=== PATIENT | male | born 1980 | race Caucasian/White ===

== ENCOUNTER → 2018-11-16 | Outpatient (CLI) | payer OTHER | END | disposition home or self-care (01) | LOC: LAB EV 18:00 → LAB SHORT 18:00 | DX: J02.9 Acute pharyngitis, unspecified (principal) | CPT/HCPCS: 87070 ==

== ENCOUNTER 2020-12-15 10:18 | Emergency (ER) | payer OTHER ==
[~2020-12-15] VITALS: Ht 180.3 cm; Wt 136.1 kg
[2020-12-15] MEDS ORDERED: HYDR1TAB94 (10:41)
[2020-12-15] MEDS ORDERED: ALLO100 (10:41)
[2020-12-15] MEDS ORDERED: OXYC5 (10:41)
[2020-12-15] MEDS ORDERED: GABA100 (10:41)
== END 2020-12-15 11:07 | disposition home or self-care (01) ==
LOC: ER 10:18
DX: L76.82 Other postprocedural complications of skin and subcutaneous tissue (principal); Z79.899 Other long term (current) drug therapy
CPT/HCPCS: 99282

== ENCOUNTER 2021-02-20 00:30 | Day surgery (SDC) | payer OTHER ==
[~2021-02-20 00:30] MED LIST: ALLO100; GABA100; HYDR1TAB94; OXYC5 PO
--- NOTE | 2021-02-20 16:03 | NUR ---
CALLED DR RADHA ALVARADO OFFICE TO OBTAIN ORDER FOR PICC LINE CARE. OFFICE STATES THEY WILL FAX THE ORDER TO US TOMORROW.
[2021-02-20] MEDS ORDERED: ONDA4ODT MM (16:06)
[2021-02-20] MEDS ORDERED: MORP15ER PO (16:06)
[2021-02-20] MEDS ORDERED: CIPR500 PO (16:06)
[2021-02-20] MEDS ORDERED: BENZ100A PO (16:07)
[2021-02-20] MEDS ORDERED: FAMO20 PO (16:07)
[2021-02-20] MEDS ORDERED: PROMETHAZINE12.5 M1 PO (16:07)
[2021-02-26] MEDS ORDERED: ALLO300 PO (14:39)
[2021-02-26] MEDS ORDERED: NEURONTIN300 MG PO (14:39)
== END 2021-02-20 15:20 | disposition home or self-care (01) ==
LOC: ATC 00:30
DX: C60.2 Malignant neoplasm of body of penis (principal); C77.4 Secondary and unspecified malignant neoplasm of inguinal and lower limb lymph nodes; Z90.79 Acquired absence of other genital organ(s)
CPT/HCPCS: 96372; J1447

== ENCOUNTER 2021-02-21 04:47 | Day surgery (SDC) | payer OTHER ==
[~2021-02-21 04:47] MED LIST changes: +BENZ100A PO; +CIPR500 PO; +FAMO20 PO; +MORP15ER PO; +ONDA4ODT MM; +PROMETHAZINE12.5 M1 PO
[2021-02-26] MEDS ORDERED: ALLO300 PO (14:39)
[2021-02-26] MEDS ORDERED: NEURONTIN300 MG PO (14:39)
== END 2021-02-21 14:45 | disposition home or self-care (01) ==
LOC: ATC 04:47
DX: C60.2 Malignant neoplasm of body of penis (principal); C77.4 Secondary and unspecified malignant neoplasm of inguinal and lower limb lymph nodes; Z90.79 Acquired absence of other genital organ(s)
CPT/HCPCS: 96372; J1447

== ENCOUNTER 2021-02-22 14:22 | Day surgery (SDC) | payer OTHER ==
[2021-02-26] MEDS ORDERED: NEURONTIN300 MG PO (14:39)
[2021-02-26] MEDS ORDERED: ALLO300 PO (14:39)
== END 2021-02-22 14:35 | disposition home or self-care (01) ==
LOC: ATC 14:22
DX: C60.9 Malignant neoplasm of penis, unspecified (principal); K21.9 Gastro-esophageal reflux disease without esophagitis
CPT/HCPCS: 96372; J1447

== ENCOUNTER 2021-02-23 14:19 | Day surgery (SDC) | payer OTHER ==
[2021-02-26] MEDS ORDERED: NEURONTIN300 MG PO (14:39)
[2021-02-26] MEDS ORDERED: ALLO300 PO (14:39)
== END 2021-02-23 14:32 | disposition home or self-care (01) ==
LOC: ATC 14:19
DX: C60.8 Malignant neoplasm of overlapping sites of penis (principal)
CPT/HCPCS: 96372; J1447

== ENCOUNTER 2021-02-24 02:40 | Day surgery (SDC) | payer OTHER ==
[2021-02-24 14:41] LABS: Hematocrit 36.2 % (37.0-53.0); Hemoglobin 12.6 g/dL (13.5-17.5); Mean Corpuscular HGB 28.3 pg (26.0-34.0); Mean Corpuscular HGB Conc 34.8 g/dL (31.5-36.5); Mean Corpuscular Volume 81 fL (80-100); Mean Platelet Volume 9.2 fL (9.1-12.4); NRBC ABSOLUTE 0.11 K/mm3 (0.00-0.02); NRBC Auto 0.5 /100 WBC (0.0-0.2); Platelet Count 294 K/mm3 (150-400); RDW Coefficient Variation 12.4 % (11.7-14.2); RDW Standard Deviation 35.9 fL (35.1-46.3); Red Blood Cell Count 4.45 M/mm3 (4.30-5.90); White Blood Cell Count 22.68 K/mm3 (4.00-11.30)
[2021-02-24 15:30] LABS: BAND PERCENT MAN 5 % (0-8); BASOPHILS PERCENT MAN 0 % (0-2); EOSINOPHILS ABSOLUTE MAN 0.22 K/mm3 (0.00-0.68); EOSINOPHILS PERCENT MAN 1 % (0-6); LYMPHOCYTES ABSOLUTE MAN 4.76 K/mm3 (0.84-5.20); LYMPHOCYTES PERCENT MAN 21 % (21-46); METAMYELOCYTE ABSOLUTE MAN 1.81 K/mm3 (0.00-0.00); METAMYELOCYTE PERCENT MAN 8 % (0-0); MONOCYTES ABSOLUTE MAN 2.94 K/mm3 (0.16-1.47); MONOCYTES PERCENT MAN 13 % (4-13); MYELOCYTE PERCENT MAN 4 % (0-0); NEUTROPHILS ABSOLUTE MAN 11.56 K/mm3 (1.96-9.15); OTHER CELL PERCENT MAN 2 % (0-0); SEG NEUTROPHILS PERCENT MAN 46 % (41-73); TOTAL CELLS COUNTED 100
--- NOTE | 2021-02-24 15:48 | NUR ---
PT HAD LABS DONE, ANC COUNT IS 11.56, SO THEREFORE PT HAD NO INJECTION OF NEUPOGEN. D/C HOME
[2021-02-26] MEDS ORDERED: NEURONTIN300 MG PO (14:39)
[2021-02-26] MEDS ORDERED: ALLO300 PO (14:39)
== END 2021-02-24 15:44 | disposition home or self-care (01) ==
LOC: ATC 02:40
PROVIDERS: Internal Medicine Medical Oncology
DX: C60.8 Malignant neoplasm of overlapping sites of penis (principal)
CPT/HCPCS: 36592; 85025

== ENCOUNTER 2021-03-05 03:58 | Day surgery (SDC) | payer OTHER ==
[~2021-03-05 03:58] MED LIST changes: +ALLO300 PO; +NEURONTIN300 MG PO
[2021-03-05] MEDS ORDERED: PARO10 PO (11:41)
== END 2021-03-05 11:35 | disposition home or self-care (01) ==
LOC: ATC 03:58
DX: C60.8 Malignant neoplasm of overlapping sites of penis (principal); K21.9 Gastro-esophageal reflux disease without esophagitis; Z79.899 Other long term (current) drug therapy
CPT/HCPCS: 99211

== ENCOUNTER 2021-03-25 03:54 | Day surgery (SDC) | payer OTHER ==
[~2021-03-25 03:54] MED LIST changes: +PARO10 PO
== END 2021-03-25 14:52 | disposition home or self-care (01) ==
LOC: ATC 03:54
DX: Z45.2 Encounter for adjustment and management of vascular access device (principal); C60.8 Malignant neoplasm of overlapping sites of penis; C77.4 Secondary and unspecified malignant neoplasm of inguinal and lower limb lymph nodes; K21.9 Gastro-esophageal reflux disease without esophagitis; Z90.79 Acquired absence of other genital organ(s)
CPT/HCPCS: 99211

== ENCOUNTER 2021-03-25 05:19 | Day surgery (SDC) | payer OTHER | END 2021-03-25 22:53 | disposition home or self-care (01) | LOC: WOUND 05:19 | DX: L76.34 Postprocedural seroma of skin and subcutaneous tissue following other procedure (principal); T81.89XD Other complications of procedures, not elsewhere classified, subsequent encounter; C60.9 Malignant neoplasm of penis, unspecified | CPT/HCPCS: A9270; G0463 ==

== ENCOUNTER 2021-05-05 01:13 | Day surgery (SDC) | payer OTHER | END 2021-05-05 23:44 | disposition home or self-care (01) | LOC: WOUND 01:13 | DX: L76.34 Postprocedural seroma of skin and subcutaneous tissue following other procedure (principal); T81.89XA Other complications of procedures, not elsewhere classified, initial encounter; C60.9 Malignant neoplasm of penis, unspecified; Z95.828 Presence of other vascular implants and grafts | CPT/HCPCS: G0463 ==

== ENCOUNTER 2021-05-05 01:25 | Day surgery (SDC) | payer OTHER | END 2021-05-05 14:58 | disposition home or self-care (01) | LOC: ATC 01:25 | DX: Z45.2 Encounter for adjustment and management of vascular access device (principal); C60.8 Malignant neoplasm of overlapping sites of penis; K21.9 Gastro-esophageal reflux disease without esophagitis | CPT/HCPCS: 99211 ==